=== PATIENT | female | born 2000 | race Caucasian/White ===

== ENCOUNTER 2022-06-05 03:22 | Emergency (ER) | payer SELFPAY ==
[2022-06-05 04:40] LABS: Acetaminophen Less than 10.0 mcg/mL (10.0-30.0); Alcohol 240 mg/dL (Less than 10); Salicylate Less than 8.0 mg/dL (15.0-30.0)
== END 2022-06-05 07:42 | disposition home or self-care (01) ==
LOC: CSHERS 03:22
DX: F10.129 Alcohol abuse with intoxication, unspecified (principal); Y90.8 Blood alcohol level of 240 mg/100 ml or more
CPT/HCPCS: 80307; 99285